=== PATIENT | female | born 1960 | race Caucasian/White ===

== ENCOUNTER → 2017-03-07 | Outpatient (CLI) | payer OTHER ==
[~2017-03-07] MED LIST: CARAFATE1 GM PO; CELEBREX200 MG PO; ERY-TAB250 MG PO; LOVASTATIN20 MG PO; LYRICA150 MG PO; METFORMIN HCL500 MG PO; NORCO 5-325 TA1 EACH PO; PROTONIX40 MG PO; RANITIDINE HCL150 MG PO; SINGULAIR10 MG PO; VIT D3 PO; XYZAL5 MG PO
== END ==
LOC: NM 13:00
DX: R11.0 Nausea (principal)
CPT/HCPCS: 78264; A9541

== ENCOUNTER → 2017-03-26 | Outpatient (CLI) | payer OTHER ==
[2017-03-26 08:45] LABS: HEMOGLOBIN 14.7 gm/dl (12.3-15.3); RED BLOOD COUNT 4.73 M/UL (4.00-5.10); WHITE BLOOD COUNT 8.7 K/UL (4.5-11.0)
[2017-03-26 09:02] LABS: BUN/CREATININE RATIO 33 (0-10)
== END ==
LOC: OPSV2 07:53
PROVIDERS: Obstetrics & Gynecology
DX: Z01.812 Encounter for preprocedural laboratory examination (principal); N39.3 Stress incontinence (female) (male); M10.9 Gout, unspecified; Z79.899 Other long term (current) drug therapy
CPT/HCPCS: 36415; 80048; 81001; 84550; 85025

== ENCOUNTER → 2020-10-25 | Outpatient (CLI) | payer OTHER ==
[~2020-10-25] VITALS: Ht 157.5 cm; Wt 61.7 kg
[~2020-10-25] MED LIST changes: +CYCLOBENZAPRINE10 MG PO
== END ==
LOC: OPSV 08:00
DX: L40.50 Arthropathic psoriasis, unspecified (principal)
CPT/HCPCS: 96365; 96366; 96374; 96375; J2920; J7050; Q5103

== ENCOUNTER 2021-04-02 09:32 | Emergency (ER) | payer OTHER ==
[~2021-04-02 09:32] MED LIST changes: -CYCLOBENZAPRINE10 MG PO
[2021-04-02 10:33] LABS: HEMOGLOBIN 13.9 gm/dl (12.3-15.3); RED BLOOD COUNT 4.47 M/UL (4.00-5.10); WHITE BLOOD COUNT 5.5 K/UL (4.5-11.0)
[2021-04-02 10:59] LABS: BUN/CREATININE RATIO 17 (0-10)
[2021-04-02] MEDS ORDERED: CYCLOBENZAPRINE10 MG PO (13:58)
== END 2021-04-02 14:11 | disposition home or self-care (01) ==
LOC: ER1 09:32
PROVIDERS: Physician Assistant
DX: R51.9 Headache, unspecified (principal); M62.838 Other muscle spasm; E11.9 Type 2 diabetes mellitus without complications; I10 Essential (primary) hypertension; Z90.710 Acquired absence of both cervix and uterus; Z90.49 Acquired absence of other specified parts of digestive tract
CPT/HCPCS: 70450; 70496; 70498; 80053; 82550; 82553; 83874; 84484; 85025; 96374; 99284; Q9967

== ENCOUNTER → 2021-04-13 | Outpatient (CLI) | payer OTHER ==
[~2021-04-13] MED LIST changes: +CYCLOBENZAPRINE10 MG PO
== END ==
LOC: KOH-I 08:15
DX: M54.2 Cervicalgia (principal); G89.29 Other chronic pain; M47.812 Spondylosis without myelopathy or radiculopathy, cervical region; M48.02 Spinal stenosis, cervical region
CPT/HCPCS: 72141

== ENCOUNTER → 2021-05-03 | Outpatient (CLI) | payer OTHER | LOC: KOH-I 04-27 13:00 | DX: Z87.891 Personal history of nicotine dependence (principal); R91.1 Solitary pulmonary nodule | CPT/HCPCS: 71271 ==

== ENCOUNTER → 2021-08-23 | Outpatient (CLI) | payer OTHER ==
[2021-08-23 10:06] LABS: HEMOGLOBIN 14.3 gm/dl (12.3-15.3); RED BLOOD COUNT 4.46 M/UL (4.00-5.10)
[2021-08-23 12:19] LABS: BUN/CREATININE RATIO 28 (0-10)
== END ==
LOC: LAB 08:01
PROVIDERS: Internal Medicine
DX: I10 Essential (primary) hypertension (principal); D69.6 Thrombocytopenia, unspecified; L40.50 Arthropathic psoriasis, unspecified; E78.5 Hyperlipidemia, unspecified; E55.9 Vitamin D deficiency, unspecified; E11.9 Type 2 diabetes mellitus without complications; R53.83 Other fatigue; J30.9 Allergic rhinitis, unspecified; Z79.899 Other long term (current) drug therapy
CPT/HCPCS: 36415; 80053; 80061; 82043; 82570; 82607; 82746; 83036; 84439; 84443; 85025; 85652; 86140

== ENCOUNTER → 2021-11-06 | Outpatient (CLI) | payer OTHER | LOC: KOH-I 10:15 | DX: M51.17 Intervertebral disc disorders with radiculopathy, lumbosacral region (principal); M51.36 Other intervertebral disc degeneration, lumbar region; M51.25 Other intervertebral disc displacement, thoracolumbar region | CPT/HCPCS: 72148 ==

== ENCOUNTER → 2022-01-15 | Outpatient (CLI) | payer OTHER | LOC: EMI 13:33 | DX: G50.8 Other disorders of trigeminal nerve (principal); R20.0 Anesthesia of skin; R20.2 Paresthesia of skin; Z86.69 Personal history of other diseases of the nervous system and sense organs | CPT/HCPCS: 70553; A9577 ==

== ENCOUNTER → 2022-05-11 | Outpatient (CLI) | payer OTHER | LOC: KOH-I 14:40 | DX: Z87.891 Personal history of nicotine dependence (principal) | CPT/HCPCS: 71271 ==